=== PATIENT | male | born 1965 | race Caucasian/White ===

== ENCOUNTER 2018-12-06 22:02 | Emergency (ER) | payer MEDICAID, SELFPAY ==
[~2018-12-06] VITALS: Ht 175.3 cm; Wt 83.3 kg
[2018-12-06 22:12] VITALS: BP 126/57
== END 2018-12-07 00:25 | disposition home or self-care (01) ==
LOC: ED 23:57
DX: S39.012A Strain of muscle, fascia and tendon of lower back, initial encounter (principal); S46.911A Strain of unspecified muscle, fascia and tendon at shoulder and upper arm level, right arm, initial encounter; W10.9XXA Fall (on) (from) unspecified stairs and steps, initial encounter; Y93.89 Activity, other specified; Y92.009 Unspecified place in unspecified non-institutional (private) residence as the place of occurrence of the external cause; Y99.8 Other external cause status
CPT/HCPCS: 72110; 99283